=== PATIENT | female | born 1995 | race Caucasian/White ===

== ENCOUNTER 2017-08-20 17:45 | Emergency (ER) | payer MEDICAID, OTHER ==
[~2017-08-20] VITALS: Ht 152.4 cm; Wt 55.0 kg
[2017-08-20 17:52] VITALS: Ht 152.4 cm; Wt 55.0 kg
[2017-08-20] MEDS ORDERED: SOD CHLORIDE 0.9% 1,000 ML IV STA (20:23)
[2017-08-20 20:57] LABS: BASOPHILS % 0.2 % (0.0-2.0); EOSINOPHILS % 0.1 % (0.0-7.0); HEMATOCRIT 36.9 % (37.0-47.0); HEMOGLOBIN 12.1 g/dl (12.0-16.0); LYMPHOCYTES # 1.2 10^3/ul (0.8-2.9); LYMPHOCYTES % 8.5 % (15.0-51.0); MEAN CORPUSCULAR HEMOGLOBIN 28.6 pg (29.0-33.0); MEAN CORPUSCULAR HGB CONC 32.8 g/dl (32.0-37.0); MEAN CORPUSCULAR VOLUME 87.2 fl (82.0-101.0); MEAN PLATELET VOLUME 9.5 fl (7.4-10.4); MONOCYTE # 0.6 10^3/ul (0.3-0.9); MONOCYTES % 4.4 % (0.0-11.0); NEUTROPHIL # 12.4 10^3/ul (1.6-7.5); NEUTROPHILS % 86.5 % (39.0-77.0); PLATELET COUNT 285 10^3/UL (140-415); RED BLOOD COUNT 4.23 10^6/ul (4.20-5.40); RED CELL DISTRIBUTION WIDTH 13.2 % (11.5-14.5); WHITE BLOOD COUNT 14.4 10^3/ul (4.8-10.8)
--- NOTE | 2017-08-20 21:00 | ERD ---
ER Documentation Chief Complaint Chief Complaint INTERMITTENT MIGRAINES W/ FEVERS/BODY ACHES X 1 MONTH. N/V HPI 21-year-old female presents here to emergency department for multiple complaints , patient is complaining of headache body aches fevers on and off for the last 1 month. Patient had vomiting episodes today. Patient's complaint of headache and body aches throbbing pain, 6/10 scale, accompanied with fevers. Patient denies any cough shortness of breath or wheezing. Patient denies any abdominal pain. Patient denies any blood in his stool or black stool. Patient denies any blood in the vomit. Patient denies any flank pain. Patient denies any dizziness. ROS All systems reviewed and are negative except as per history of present illness. Medications Home Meds Active Scripts Ondansetron (Ondansetron Odt) 4 Mg Tab.rapdis, 4 MG PO Q8 Y for NAUSEA AND/OR VOMITING, #30 TAB Prov:BONNY ROWLAND NP 08/20/17 Electrolyte,Oral (Pedialyte) 1,000 Ml Solution, 100 ML PO Q6, #1 BOT Prov:BONNY ROWLAND NP 08/20/17 Acetaminophen* (Tylophen*) 500 Mg Capsule, 1 CAP PO Q6H Y for PAIN AND OR ELEVATED TEMP, #20 CAP Prov:BONNY ROWLAND NP 08/20/17 Ibuprofen* (Motrin*) 600 Mg Tab, 600 MG PO Q6H Y for PAIN AND OR ELEVATED TEMP, #30 TAB Prov:BONNY ROWLAND NP 08/20/17 Reported Medications [none] Unknown Strength No Conflict Check 08/20/17 Allergies Allergies: Coded Allergies: No Known Allergy (Unverified , 08/20/17) PMhx/Soc Medical and Surgical Hx: pt denies Medical Hx, pt denies Surgical Hx Hx Alcohol Use: No Hx Substance Use: No Hx Tobacco Use: No Smoking Status: Never smoker FmHx Family History: No coronary disease, No diabetes, No other Physical Exam Vitals Vital Signs Date Time Temp Pulse Resp B/P Pulse Ox O2 Delivery O2 Flow Rate FiO2 08/20/17 22:20 99.2 17 17 98/57 99 Room Air 08/20/17 17:52 101.0 122 18 132/68 97 Physical Exam GENERAL: The patient is well developed and appropriate for usual state of health, in no apparent distress. CHEST: Clear to auscultation bilaterally. There are no rales, wheezes or rhonchi. HEART: Regular rate and rhythm. No murmurs, clicks, rubs or gallops. No S3 or S4. ABDOMEN: Soft, nontender and nondistended. Good bowel sounds. No rebound or guarding. No gross peritonitis. No gross organomegaly or masses. No Armendariz sign or McBurney point tenderness. BACK: No midline or flank tenderness. EXTREMITIES: Equal pulses bilaterally. There is no peripheral clubbing, cyanosis or edema. No focal swelling or erythema. Full range of motion. Grossly neurovascularly intact. NEURO: Alert and oriented. Cranial nerves 2-12 intact. Motor strength in all 4 extremities with 5/5 strength. Sensation grossly intact. Normal speech and gait. Negative Romberg sign. Negative pronator drift. No nuchal rigidity noted. SKIN: There is no apparent rash or petechia. The skin is warm and dry. HEMATOLOGIC AND LYMPHATIC: There is no evidence of excessive bruising or lymphedema. No gross cervical, axillary, or inguinal lymphadenopathy. Result Diagram: 08/20/17203408/20/172034 Results 24 hrs Laboratory Tests Test 08/20/17 20:35 White Blood Count 14.410^3/ul Red Blood Count 4.2310^6/ul Hemoglobin 12.1g/dl Hematocrit 36.9% Mean Corpuscular Volume 87.2fl Mean Corpuscular Hemoglobin 28.6pg Mean Corpuscular Hemoglobin Concent 32.8g/dl Red Cell Distribution Width 13.2% Platelet Count 55426^3/UL Mean Platelet Volume 9.5fl Neutrophils % 86.5% Lymphocytes % 8.5% Monocytes % 4.4% Eosinophils % 0.1% Basophils % 0.2% Nucleated Red Blood Cells % 0.0/100WBC Neutrophils # 12.410^3/ul Lymphocytes # 1.210^3/ul Monocytes # 0.610^3/ul Eosinophils # 0.010^3/ul Basophils # 0.010^3/ul Nucleated Red Blood Cells # 0.010^3/ul Urine Color YELLOW Urine Clarity CLEAR Urine pH 6.0 Urine Specific [place] 1.014 Urine Ketones 1+mg/dL Urine Nitrite NEGATIVEmg/dL Urine Bilirubin NEGATIVEmg/dL Urine Urobilinogen 2+mg/dL Urine Leukocyte Esterase NEGATIVELeu/ul Urine Hemoglobin NEGATIVEmg/dL Urine Glucose NEGATIVEmg/dL Urine Total Protein NEGATIVEmg/dl Sodium Level 140mmol/L Potassium Level 3.6mmol/L Chloride Level 103mmol/L Carbon Dioxide Level 24mmol/L Anion Gap 17 Blood Urea Nitrogen 11mg/dl Creatinine 0.67mg/dl Glucose Level 86mg/dl Calcium Level 9.1mg/dl Total Bilirubin 0.5mg/dl Direct Bilirubin 0.00mg/dl Indirect Bilirubin 0.5mg/dl Aspartate Amino Transf (AST/SGOT) 32IU/L Alanine Aminotransferase (ALT/SGPT) 38IU/L Alkaline Phosphatase 76IU/L Total Protein 8.2g/dl Albumin 4.6g/dl Globulin 3.60g/dl Albumin/Globulin Ratio 1.27 Lipase 88U/L Current Medications Medications (Trade) Dose Ordered Sig/Michael Route PRN Reason Start Time Stop Time Status Last Admin Dose Admin Sodium Chloride (NS) 1,000 ml @ 1,000 mls/hr Q1H STAT IV 08/20/17 20:23 08/20/17 21:22 DC 08/20/17 20:34 Acetaminophen (Tylenol Tab) 1,000 mg ONCE STAT PO 08/20/17 21:05 08/20/17 21:06 DC 08/20/17 21:17 Ibuprofen (Motrin) 600 mg ONCE STAT PO 08/20/17 21:06 08/20/17 21:07 DC 08/20/17 21:17 Normal saline IV bolus was given here in emergency department for rehydration, patient tolerated IV fluids. PROCEDURE: CT Brain without contrast. CLINICAL INDICATION: Headache. Fever. TECHNIQUE: A CT of the brain was performed on a multidetector CT scanner utilizing axial imaging from the skull base through the vertex without IV contrast. Multiplanar reformatted images were made. Images were reviewed on a PACS workstation. The CTDIvol is 30 mGy and the DLP is 484 mGycm. One or more of the following dose reduction techniques were utilized: 1.) Automated exposure control 2.) Adjustment of the mA +/- kV according to patient's size 3.) Use of iterative reconstruction technique. COMPARISON: None FINDINGS: There is no intracranial hemorrhage, mass effect, or midline shift. No extra- axial fluid collection is seen. The ventricles and sulci are normal in size and configuration. The density of the brain is normal, and the hammer white matter differentiation appears well-preserved. The visualized paranasal sinuses and osseous structures are grossly unremarkable. IMPRESSION: 1. No evidence of acute intracranial pathology. 2. The brain is normal in appearance. .Ethan Neumann MD, MD Date Time Electronically viewed and signed by .Ethan Neumann MD, on 08/20/2017 21: 01 .A/ CC: BONNY ROWLAND ENGINE BUILDER PROCEDURE: XR Chest. CLINICAL INDICATION: Fever. TECHNIQUE: Single frontal view of the chest. COMPARISON: None. FINDINGS: The cardiomediastinal silhouette is within normal limits. The lungs are clear. No signs of pleural fluid or pneumothorax are seen. The osseous structures and soft tissues are unremarkable. IMPRESSION: No evidence for active cardiopulmonary disease. RPTAT: [facility] Physician Becky Date Time Electronically viewed and signed by Physician Becky on 08/20/2017 21:19 RS/ CC: BONNY ROWLAND ENGINE BUILDER Microbiology INFLUENZA A & B BY EIA Final INFLU A&B BY EIA INFLUENZA A NEGATIVE (Ref Range Neg) INFLUENZA B NEGATIVE (Ref Range Neg) Procedures/MDM Medical decision making: Patient symptoms was likely is consistent with viral syndrome. Chest x-ray is normal, CT scan of the brain is normal, laboratory testing does not show any bandemia, no electrolyte imbalance, no symptoms of any sepsis at this time, patient appears well and hemodynamically stable, vital signs are stable prior to discharge. Patient has no symptoms of any meningitis , negative Kernig sign, negative Brudzinski sign, no nuchal rigidity. Patient verbalized very much better afterwards. I discussed this case with my attending physician, Dr. Vega, recommended outpatient management with symptomatic treatment, strict return to ER precautions for any worsening symptoms. Patient was advised to follow-up with primary care doctor in 1-2 days for reevaluation of symptoms Disposition: Home. Stable. Prescriptions: ibuprofen, Tylenol, Zofran, Pedialyte Departure Diagnosis: Primary Impression: Viral syndrome Condition: Stable Patient Instructions: Viral Syndrome (Adult) BONNY ROWLAND NP Aug 20, 2017 21:00
[2017-08-20] MEDS ORDERED: ACETAMINOPHEN 500 MG TAB PO STA (21:05)
[2017-08-20 21:06] LABS: ADD UMIC NO; UR ASCORBIC ACID NEGATIVE (NEGATIVE); UR BILIRUBIN (Dip) NEGATIVE (NEGATIVE); UR BLOOD (Dip) NEGATIVE (NEGATIVE); UR CLARITY CLEAR (CLEAR); UR COLOR YELLOW (YELLOW); UR GLUCOSE (Dip) NEGATIVE (NEGATIVE); UR KETONES (Dip) 1+ mg/dL (NEGATIVE); UR LEUKOCYTE ESTERASE (Dip) NEGATIVE Leu/ul (NEGATIVE); UR NITRITE (Dip) NEGATIVE (NEGATIVE); UR SPECIFIC GRAVITY (Dip) 1.014 (1.003-1.030); UR TOTAL PROTEIN (Dip) NEGATIVE (NEGATIVE); UR UROBILINOGEN (Dip) 2+ mg/dL (NEGATIVE)
[2017-08-20] MEDS ORDERED: IBUPROFEN 600 MG TAB PO STA (21:06)
--- NOTE | 2017-08-20 21:19 | RADRPT ---
PROCEDURE: XR Chest. CLINICAL INDICATION: Fever. TECHNIQUE: Single frontal view of the chest. COMPARISON: None. FINDINGS: The cardiomediastinal silhouette is within normal limits. The lungs are clear. No signs of pleural f luid or pneumothorax are seen. The osseous structures and soft tissues are unremarkable. IMPRESSION: No evidence for active cardiopulmonary disease. RPTAT: [facility] Physician Becky Date Time Electronically viewed and signed by Physician Becky on 08/20/2017 21:19 RS/
[2017-08-20 21:22] LABS: ALBUMIN 4.6 g/dl (3.3-4.9); ALBUMIN/GLOBULIN RATIO 1.27; BILIRUBIN,INDIRECT 0.5 mg/dl (0-1.1); BILIRUBIN,TOTAL 0.5 mg/dl (0.2-1.3); CALCIUM 9.1 mg/dl (8.4-10.2); CREATININE 0.67 mg/dl (0.44-1.00); POTASSIUM 3.6 mmol/L (3.5-5.1); TOTAL PROTEIN 8.2 g/dl (6.1-8.1)
[2017-08-20] MEDS ORDERED: ELEC100080 PO (22:07)
[2017-08-20] MEDS ORDERED: ONDA4TAB14 PO (22:07)
[2017-08-20] MEDS ORDERED: IBUP-1542 PO (22:07)
[2017-08-20] MEDS ORDERED: ACET500C5 PO (22:07)
[2017-08-20 22:20] VITALS: BP 98/57; PULSE 17; RESP 17; TEMP 99.2
== END 2017-08-20 22:20 | disposition home or self-care (01) ==
LOC: FTE 17:45
DX: B34.9 Viral infection, unspecified (principal); R51 Headache
CPT/HCPCS: 36415; 70450; 71010; 80053; 81003; 83690; 85025; 87400; 96360; J7030; Z7502; Z7610